=== PATIENT | female | born 1940 | race Caucasian/White ===

== ENCOUNTER 2023-08-08 12:28 | Emergency (ER) | payer OTHER, SELFPAY ==
[2023-08-08 12:46] VITALS: BP 144/71; PULSE 80; RESP 17; TEMP 36.6; O2SAT 98; BMI 29.7
--- NOTE | 2023-08-08 12:56 | DI.CT.S_ITS ---
PROCEDURE: CT HEAD/BRAIN WO CON INDICATIONS: head injury TECHNIQUE: Noncontrast 4.5 mm thick angled axial sections acquired from the foramen magnum to the vertex, with coronal and sagittal reformats. For radiation dose reduction, the following was used: automated exposure control, adjustment of mA and/or kV according to patient size. COMPARISON: None. FINDINGS: Image quality: Diagnostic. CSF spaces: Basal cisterns are patent. No extra-axial fluid collections. The ventricles are symmetric in size and shape. Brain: No intracranial bleeds or masses. There is moderate cerebral volume loss for age, with resultant ventricular and sulcal prominence. There are moderate periventricular and deep white matter chronic small vessel ischemic changes. There is intracranial internal carotid artery atherosclerosis. Skull and face: Calvarium and visualized facial bones appear intact, without suspicious lesions. Sinuses: Visualized sinuses and mastoids are clear. IMPRESSION: 1. CT head without acute intracranial abnormalities or acute calvarial fractures. 2. Age-related senescent changes and sequela of chronic small vessel ischemic disease. Dictated by: Alonso Davis M.D. on 08/08/2023 at 13:32 Approved by: Alonso Davis M.D. on 08/08/2023 at 13:34
--- NOTE | 2023-08-08 12:59 | ED_ITS ---
HPI - Wound/Laceration General Chief Complaint: Wound/Laceration Stated Complaint: Fall, head laceration Time Seen by Provider: 08/08/23 12:59 Source: patient Mode of arrival: Ambulatory History of Present Illness HPI narrative: 83-year-old female with a ground level fall struck the front of her head resulting in a small laceration. No loss of consciousness no severe headache no vomiting she has not anticoagulated. Unsure when her last tetanus booster was but would prefer to talk to her primary care provider about this. No neck pain numbness or weakness. Related Data Home Medications Medication Instructions Recorded Confirmed amlodipine 5 mg tablet 5 mg PO DAILY 08/08/23 08/08/23 atorvastatin 20 mg tablet 20 mg PO DAILY 08/08/23 08/08/23 estradiol 0.01% (0.1 mg/gram) vaginal 08/08/23 vaginal cream omeprazole 20 mg capsule,delayed 20 mg PO DAILY PRN heartburn 08/08/23 08/08/23 release Allergies Allergy/AdvReac Type Severity Reaction Status Date / Time ashwagandha [From Cortisolv] Allergy ITCHING Verified 08/08/23 12:52 banaba leaf extract Allergy ITCHING Verified 08/08/23 12:52 [From Cortisolv] magnolia bark extract Allergy ITCHING Verified 08/08/23 12:52 [From Cortisolv] carl root extract Allergy ITCHING Verified 08/08/23 12:52 [From Cortisolv] Phellodendron Allergy ITCHING Verified 08/08/23 12:52 [From Cortisolv] theanine [From Cortisolv] Allergy ITCHING Verified 08/08/23 12:52 Patient History Social History Smoking Status: Never smoker Smoking Status: Never smoker alcohol intake frequency: other Substance Use Type: does not use Exam Initial Vital Signs Initial Vital Signs: Vital Signs Temperature 98 F 08/08/23 12:46 Pulse Rate 80 08/08/23 12:46 Respiratory Rate 17 08/08/23 12:46 Blood Pressure 144/71 H 08/08/23 12:46 Pulse Oximetry 98 08/08/23 12:46 Oxygen Delivery Method Room Air 08/08/23 12:46 [facility] Other: Has some periorbital ecchymosis from her previous eye surgery. The re is a 1.5 cm curved laceration just about at the midline frontal scalp. It is gaping minimally. Bleeding is controlled. No palpable deformity of the skull underneath it Eyes Other: Pupils are equal round and reactive extraocular movements are intact Neck Other: No midline tenderness Neuro Other: Alert and oriented Procedures Laceration Repair Laceration 1: Site: scalp and face Size (cm): 2 Local Anesthetic: lidocaine 1% and with epi Skin layer closed with: jt Course Orders Ordered: ED Orders 08/08/23 12:56 CT head/brain wo con Stat Discontinued Medications Diphtheria/Tetanus/Acell Pertussis (Tet,Diph,Pertuss(Acell),Vac/Pf 0.5 Ml Syringe) 0.5 ml IM .ONCE ONE Stop: 08/08/23 12:59 Last Admin: 08/08/23 13:10 Dose: Not Given Vital Signs Vital signs: Vital Signs - 8 hr 08/08/23 12:46 Temperature 98 F Pulse Rate 80 Respiratory Rate 17 Blood Pressure 144/71 H Pulse Oximetry 98 Oxygen Delivery Method Room Air MDM - Wound/Laceration Imaging Data CT scan - head: My Impression: Independently reviewed CT head no acute finding Radiologist's Impression: No acute findings, incidental report of atherosclerotic vascular disease MDM Narrative Medical decision making narrative: 83-year-old female who has not anticoagulated with a ground level fall resulting in a scalp laceration. Mental status is intact, negative head CT. Laceration was closed, patient would prefer to defer tetanus update. Discharge Plan Departure Patient Disposition: Home Clinical Impression: Laceration Instructions: DI for Laceration Repair Activity Restrictions/Additional Instructions: Keep wound clean and covered. Apply antibiotic ointment daily. Tornado should be removed in about 10 days, you can do this with your primary care doctor or urgent care. As we discussed, do not submerge your head and water until jt have been removed. It is okay to shower beginning tomorrow. If you are having redness or swelling at the wound or if you are having headaches nausea unsteadiness or changes in mental status recheck in the emergency department. Contact your primary care doctor regarding tetanus status and review CT report with them regarding finding of carotid atherosclerotic disease Prescriptions: No Action atorvastatin 20 mg tablet 20 mg PO DAILY amlodipine 5 mg tablet 5 mg PO DAILY omeprazole 20 mg capsule,delayed release(DR/EC) 20 mg PO DAILY PRN (Reason: heartburn) estradiol 0.01 % (0.1 mg/gram) cream vaginal Referrals: Miscellaneous,Doctor, [Primary Care Provider] - Stand Alone Forms: Patient Portal/API
[2023-08-08 14:27] VITALS: BP 139/68; PULSE 77; RESP 16; O2SAT 96
== END 2023-08-08 14:45 | disposition home or self-care (01) ==
PROVIDERS: Emergency Provider Emergency Medicine
DX: S01.01XA Laceration without foreign body of scalp, initial encounter (principal); W18.30XA Fall on same level, unspecified, initial encounter
CPT/HCPCS: 12001; 70450; 99283